=== PATIENT | female | born 1990 | race Caucasian/White ===

== ENCOUNTER → 2017-01-30 | Outpatient (CLI) | payer BC ==
[~2017-01-30] MED LIST: CATHETER FLUSH 10 ML SYR IV PRN; IOHEXOL 350 MG/ML 100 ML (OMNIPAQUE 350) VIAL IV ONE; NS 100 ML (IVPB) BAG IV ONE; PREN1TAB39
--- NOTE | 2017-01-30 14:19 | Diagnostic Imaging Report ---
OB ultrasound. INDICATION: survey. There are no prior studies available for comparison. There is a single live fetus in cephalic presentation. heart motion was noted and a rate of 174 bpm was recorded. There were no abnormalities identified. The growth parameters are fairly uniform. The growth parameters are as follows: BPD: 4.3 20 weeks 5 days Head circumference: 17.43 20 weeks 0 days Abdominal circumference: 14.97 20 weeks 2 days Femur length: 3.20 20 weeks 0 days The estimated weight is 333 g plus or -49 g. LMP percentile is 43%. The placenta is posterior and there is no previa. The amniotic fluid volume is within normal limits. The cervix was measured and is estimated to be 3.41 cm in length (normal 3 cm or greater). IMPRESSION: 1. There is a single live fetus approximately 20 weeks 2 days gestation + or -2 weeks. The EDC is 06/17/2017. 2. There are no abnormalities identified. 3. The growth parameters are fairly uniform. Dictated by: Dictated on workstation # [id number]
== END ==
LOC: RAD 10:12
PROVIDERS: ATTEND Obstetrics & Gynecology
DX: Z34.82 Encounter for supervision of other normal pregnancy, second trimester (principal); Z36 Encounter for antenatal screening of mother
CPT/HCPCS: 76805; 76817

== ENCOUNTER 2017-05-25 20:48 | Outpatient (CLI) | payer BC ==
[~2017-05-25] VITALS: Ht 160 cm; Wt 81.2 kg
[~2017-05-25 20:48] MED LIST changes: -CATHETER FLUSH 10 ML SYR IV PRN; -IOHEXOL 350 MG/ML 100 ML (OMNIPAQUE 350) VIAL IV ONE; -NS 100 ML (IVPB) BAG IV ONE
[2017-05-25] MEDS ORDERED: ASPI-999 PO (21:01)
[2017-05-25 21:09] VITALS: BP 128/79
[2017-05-25 21:17] LABS: BILIRUBIN,URINE NEGATIVE (NEGATIVE); KETONES,URINE 2+ (NEGATIVE); LEUKOCYTE ESTERASE ,URINE 1+ (NEGATIVE); NITRITE,URINE NEGATIVE (NEGATIVE); PH,URINE 6 (5-9); PROTEIN,URINE 1+ (NEGATIVE); UROBILINOGEN,URINE 1 MG/DL (NORMAL)
[2017-05-25 21:33] VITALS: BP 123/71
[2017-05-25 21:41] LABS: SQUAMOUS EPITHELIAL CELL,UR 25-50 /HPF
[2017-05-25 21:45] VITALS: BP 126/67
--- NOTE | 2017-05-27 11:51 | Physician Query-Final Dx ---
ARLETH CULLEN 05/27/17 1151: Clinic Account Progress/Dx Physician Query: Please give diagnosis Date of Service May 25, 2017 at 20:48 GENNARO PALENCIA DO 05/28/17 0836: Clinic Account Progress/Dx DIAGNOSIS: Diagnosis 36 week IUP Previous Intermittent cramping History of PreE in previous ARLETH CULLEN May 27, 2017 11:51 GENNARO PALENCIA DO May 28, 2017 08:36
== END 2017-05-25 22:03 | disposition home or self-care (01) ==
LOC: LDRP 20:48 → WSo 20:48
PROVIDERS: ATTEND Obstetrics & Gynecology
DX: O99.89 Other specified diseases and conditions complicating pregnancy, childbirth and the puerperium (principal); N94.89 Other specified conditions associated with female genital organs and menstrual cycle; O34.211 Maternal care for low transverse scar from previous cesarean delivery; O09.893 Supervision of other high risk pregnancies, third trimester; Z3A.36 36 weeks gestation of pregnancy
CPT/HCPCS: 81000; 99213

== ENCOUNTER 2017-05-31 18:14 | Inpatient (IN) | payer BC ==
[~2017-05-31] VITALS: Ht 160 cm; Wt 83.5 kg
[2017-05-31] VITALS (7 sets, daily range): BP systolic 108–135; BP diastolic 65–81
[~2017-05-31 18:14] MED LIST changes: +ASPI-999 PO
[2017-05-31] MEDS ORDERED: D5 LR IV SOLUTION 1,000 ML IV ONE (18:55)
[2017-05-31] MEDS ORDERED: D5 LR IV SOLUTION 1,000 ML IV SCH ×2 (19:00→21:30)
[2017-05-31 19:27] LABS: BASOPHILS % (AUTO) 0 % (0-10); EOSINOPHILS # (AUTO) 0.1 10^3/uL (0.0-0.3); EOSINOPHILS % (AUTO) 1 % (0-10); LYMPHOCYTES # (AUTO) 1.5 X 10^3 (1.0-4.0); LYMPHOCYTES % (AUTO) 18 % (12-44); MEAN CORPUSCULAR HEMOGLOBIN 27 PG (25-34); MEAN CORPUSCULAR HGB CONC 32 G/DL (32-36); MEAN CORPUSCULAR VOLUME 85 FL (80-99); MEAN PLATELET VOLUME 10.8 FL (7.4-10.4); MONOCYTES # (AUTO) 0.6 X 10^3 (0.0-1.0); MONOCYTES % (AUTO) 7 % (0-12); NEUTROPHILS # (AUTO) 6.4 X 10^3 (1.8-7.8); NEUTROPHILS % (AUTO) 74 % (42-75); PLATELET COUNT 231 10^3/uL (130-400); RED CELL DISTRIBUTION WIDTH 13.5 % (10.0-14.5); WHITE BLOOD COUNT 8.6 10^3/uL (4.3-11.0)
[2017-05-31 19:39] LABS: PROTEIN/CREATININE RATIO 0.15
[2017-05-31 19:44] LABS: ALANINE AMINOTRANSFERASE 11 U/L (0-55); ALBUMIN 3.2 GM/DL (3.2-4.5); ANION GAP 14 MMOL/L (5-14); ASPARTATE AMINO TRANSFERASE 17 U/L (5-34); BILIRUBIN,TOTAL 0.4 MG/DL (0.1-1.0); BLOOD UREA NITROGEN 8 MG/DL (7-18); BUN/CREATININE RATIO 14; CARBON DIOXIDE 15 MMOL/L (21-32); CHLORIDE 108 MMOL/L (98-107); CREATININE SERUM 0.57 MG/DL (0.60-1.30); GFR ESTIMATED > 60; GLUCOSE 62 MG/DL (70-105); LACTATE DEHYDROGENASE 236 U/L (125-220); POTASSIUM 3.9 MMOL/L (3.6-5.0); SODIUM 137 MMOL/L (135-145); URIC ACID 4.3 MG/DL (2.6-7.2)
[2017-05-31] MEDS ORDERED: ACET325T38 PO (20:20)
[2017-05-31] MEDS ORDERED: BUTORPHANOL INJ 2 MG/ML (STADOL) VIAL ONE (20:21)
[2017-05-31] MEDS ORDERED: BUTORPHANOL INJ 2 MG/ML (STADOL) VIAL IV ONE (20:30)
--- NOTE | 2017-05-31 21:30 | History & Physical ---
History and Physical Date Seen by Provider: May 31, 2017 Time Seen by Provider: 21:24 this patient is a 26-year-old white female.she presents with complaint of headache, and increasing edema, and the feeling of impending doom. her first was complicated by severe preeclampsia requiring emergent delivery.. she indicates that the way she feels now is the way she felt at the time of her delivery with her previous . She denies rupture membranes or bleeding. Does complain of contractions. Her has been uncomplicated but she has had progressively increasing edema over the last couple of weeks. Allergies are none Indications are vitamins Medical history, surgical history, obstetric history, family history, and social histories are per the antepartum record HEENT exam is normal. The patient does look fatigued and worried. He appears to be in mild distress Neck is supple. The abdomen is gravid and nontender Streaming show no clubbing or cyanosis. There is no Homans sign. There is markedly pretibial pitting edema Pelvic exam per the nurse shows a cervix closed and thick The monitor shows contractions every 6 minutes with normal heart rate pattern did show one variable deceleration there are accelerations and variability is normal average Laboratory Tests Test 05/31/17 18:30 05/31/17 19:10 Range/Units Urine Protein 21 H 6-12 MG/DL Urine Creatinine 142 H 30-125 MG/DL Urine Protein/Creatinine Ratio 0.15 White Blood Count 8.6 4.3-11.0 10^3/uL Red Blood Count 4.10 L 4.35-5.85 10^6/uL Hemoglobin 11.2 L 11.5-16.0 G/DL Hematocrit 35 35-52 % Mean Corpuscular Volume 85 80-99 FL Mean Corpuscular Hemoglobin 27 25-34 PG Mean Corpuscular Hemoglobin Concent 32 32-36 G/DL Red Cell Distribution Width 13.5 10.0-14.5 % Platelet Count 231 130-400 10^3/uL Mean Platelet Volume 10.8 H 7.4-10.4 FL Neutrophils (%) (Auto) 74 42-75 % Lymphocytes (%) (Auto) 18 12-44 % Monocytes (%) (Auto) 7 0-12 % Eosinophils (%) (Auto) 1 0-10 % Basophils (%) (Auto) 0 0-10 % Neutrophils # (Auto) 6.4 1.8-7.8 X 10^3 Lymphocytes # (Auto) 1.5 1.0-4.0 X 10^3 Monocytes # (Auto) 0.6 0.0-1.0 X 10^3 Eosinophils # (Auto) 0.1 0.0-0.3 10^3/uL Basophils # (Auto) 0.0 0.0-0.1 10^3/uL Sodium Level 137 135-145 MMOL/L Potassium Level 3.9 3.6-5.0 MMOL/L Chloride Level 108 H 98-107 MMOL/L Carbon Dioxide Level 15 L 21-32 MMOL/L Anion Gap 14 5-14 MMOL/L Blood Urea Nitrogen 8 7-18 MG/DL Creatinine 0.57 L 0.60-1.30 MG/DL Estimat Glomerular Filtration Rate > 60 BUN/Creatinine Ratio 14 Glucose Level 62 L 70-105 MG/DL Uric Acid 4.3 2.6-7.2 MG/DL Calcium Level 9.0 8.5-10.1 MG/DL Total Bilirubin 0.4 0.1-1.0 MG/DL Aspartate Amino Transf (AST/SGOT) 17 5-34 U/L Alanine Aminotransferase (ALT/SGPT) 11 0-55 U/L Alkaline Phosphatase 159 H 40-136 U/L Lactate Dehydrogenase 236 H 125-220 U/L Total Protein 6.0 L 6.4-8.2 GM/DL Albumin 3.2 3.2-4.5 GM/DL Patient's lab work is essentially normal except for the LDH which is elevated. Patient appears to be somewhat dehydrated. assessment and plan 37-3/7 weeks' gestation in a patient who may very well be in early labor. she also very well may be developing preeclampsia. The elevated LDH she could as well be developing help syndrome. We will continue hydration through the evening. We have given her pain medication for headache. Lab work is as noted above we will repeat that in the morning. Her prior physician was Dr. Neal and she is transferring her care currently to Dr. Navarrete. She has had a previous and plan would be for delivery by as well. Patient understands that if she does demonstrate ethnic preeclampsia then we will deliver her. If she progresses in labor we will deliver her. Any signs of compromise we would deliver her. premature labor / marked edema Allergies and Home Medications Allergies Coded Allergies: No Known Drug Allergies (Unverified , 05/25/17) Home Medications Acetaminophen 325 Mg Tablet, 325 MG PO PRN, (Reported) Aspirin 81 Mg Tab.chew, 81 MG PO DAILY, (Reported) Vits W-Ca,Fe,Fa(<1MG) 1 Each Tablet, (Reported) JOJO YANES MD May 31, 2017 9:30 pm
[2017-05-31] MEDS ORDERED: oxyCODONE/APAP 10/325MG (PERCOCET 10) TABLET PO ONE (21:45)
[2017-06-01] VITALS (13 sets, daily range): BP systolic 108–146; BP diastolic 56–91
[2017-06-01 06:40] LABS: BASOPHILS % (AUTO) 0 % (0-10); EOSINOPHILS # (AUTO) 0.1 10^3/uL (0.0-0.3); EOSINOPHILS % (AUTO) 1 % (0-10); LYMPHOCYTES # (AUTO) 1.7 X 10^3 (1.0-4.0); LYMPHOCYTES % (AUTO) 22 % (12-44); MEAN CORPUSCULAR HEMOGLOBIN 28 PG (25-34); MEAN CORPUSCULAR HGB CONC 32 G/DL (32-36); MEAN CORPUSCULAR VOLUME 86 FL (80-99); MEAN PLATELET VOLUME 10.6 FL (7.4-10.4); MONOCYTES # (AUTO) 0.6 X 10^3 (0.0-1.0); MONOCYTES % (AUTO) 7 % (0-12); NEUTROPHILS # (AUTO) 5.6 X 10^3 (1.8-7.8); NEUTROPHILS % (AUTO) 70 % (42-75); PLATELET COUNT 225 10^3/uL (130-400); RED BLOOD COUNT 3.89 10^6/uL (4.35-5.85); RED CELL DISTRIBUTION WIDTH 13.5 % (10.0-14.5)
[2017-06-01 06:57] LABS: ALANINE AMINOTRANSFERASE 12 U/L (0-55); ALBUMIN 3.1 GM/DL (3.2-4.5); ANION GAP 9 MMOL/L (5-14); ASPARTATE AMINO TRANSFERASE 13 U/L (5-34); BILIRUBIN,TOTAL 0.4 MG/DL (0.1-1.0); BLOOD UREA NITROGEN 8 MG/DL (7-18); BUN/CREATININE RATIO 14; CALCIUM 8.9 MG/DL (8.5-10.1); CARBON DIOXIDE 21 MMOL/L (21-32); CHLORIDE 107 MMOL/L (98-107); CREATININE SERUM 0.59 MG/DL (0.60-1.30); GFR ESTIMATED > 60; GLUCOSE 76 MG/DL (70-105); LACTATE DEHYDROGENASE 172 U/L (125-220); SODIUM 137 MMOL/L (135-145); TOTAL PROTEIN 5.9 GM/DL (6.4-8.2)
--- NOTE | 2017-06-01 08:32 | Progress Note-Standard ---
Standard Progress Note Progress Notes/Assess & Plan Date Seen by Provider: Jun 01, 2017 Time Seen by Provider: 08:28 Progress/Assessment & Plan patient continues to feel unwell. She reports she feels as she did when she had severe preeclampsia with her previous . As persistent headache. Her legs ache. She has occasional contraction but denies rupture membranes or bleeding. She does feel baby moving. Vital Signs Date Time Temp Pulse Resp B/P (MAP) Pulse Ox O2 Delivery O2 Flow Rate FiO2 06/01/17 06:45 97.1 105 18 126/75 Room Air 06/01/17 05:29 102 18 114/67 Room Air 06/01/17 02:24 86 18 108/57 Room Air 06/01/17 01:21 106 18 146/91 Room Air 06/01/17 01:03 99 18 127/73 Room Air 06/01/17 00:03 98 18 114/56 Room Air 05/31/17 23:03 98 18 120/65 Room Air 05/31/17 22:03 98.3 96 18 129/81 Room Air 05/31/17 21:20 99 18 133/77 Room Air 05/31/17 20:20 109 18 122/80 Room Air 05/31/17 20:02 98.8 121 18 108/71 Room Air 05/31/17 18:50 117 18 124/77 05/31/17 18:38 99.5 101 18 135/79 Blood pressures vacillated bit but are essentially normal, she is afebrile Laboratory Tests Test 05/31/17 18:30 05/31/17 19:10 06/01/17 06:30 06/01/17 07:30 Range/Units Urine Protein 21 H < 6 L 6-12 MG/DL Urine Creatinine 142 H 18 L 30-125 MG/DL Urine Protein/Creatinine Ratio 0.15 White Blood Count 8.6 8.0 4.3-11.0 10^3/uL Red Blood Count 4.10 L 3.89 L 4.35-5.85 10^6/uL Hemoglobin 11.2 L 10.7 L 11.5-16.0 G/DL Hematocrit 35 34 L 35-52 % Mean Corpuscular Volume 85 86 80-99 FL Mean Corpuscular Hemoglobin 27 28 25-34 PG Mean Corpuscular Hemoglobin Concent 32 32 32-36 G/DL Red Cell Distribution Width 13.5 13.5 10.0-14.5 % Platelet Count 231 225 130-400 10^3/uL Mean Platelet Volume 10.8 H 10.6 H 7.4-10.4 FL Neutrophils (%) (Auto) 74 70 42-75 % Lymphocytes (%) (Auto) 18 22 12-44 % Monocytes (%) (Auto) 7 7 0-12 % Eosinophils (%) (Auto) 1 1 0-10 % Basophils (%) (Auto) 0 0 0-10 % Neutrophils # (Auto) 6.4 5.6 1.8-7.8 X 10^3 Lymphocytes # (Auto) 1.5 1.7 1.0-4.0 X 10^3 Monocytes # (Auto) 0.6 0.6 0.0-1.0 X 10^3 Eosinophils # (Auto) 0.1 0.1 0.0-0.3 10^3/uL Basophils # (Auto) 0.0 0.0 0.0-0.1 10^3/uL Sodium Level 137 137 135-145 MMOL/L Potassium Level 3.9 4.0 3.6-5.0 MMOL/L Chloride Level 108 H 107 98-107 MMOL/L Carbon Dioxide Level 15 L 21 21-32 MMOL/L Anion Gap 14 9 5-14 MMOL/L Blood Urea Nitrogen 8 8 7-18 MG/DL Creatinine 0.57 L 0.59 L 0.60-1.30 MG/DL Estimat Glomerular Filtration Rate > 60 > 60 BUN/Creatinine Ratio 14 14 Glucose Level 62 L 76 70-105 MG/DL Uric Acid 4.3 2.6-7.2 MG/DL Calcium Level 9.0 8.9 8.5-10.1 MG/DL Total Bilirubin 0.4 0.4 0.1-1.0 MG/DL Aspartate Amino Transf (AST/SGOT) 17 13 5-34 U/L Alanine Aminotransferase (ALT/SGPT) 11 12 0-55 U/L Alkaline Phosphatase 159 H 158 H 40-136 U/L Lactate Dehydrogenase 236 H 172 125-220 U/L Total Protein 6.0 L 5.9 L 6.4-8.2 GM/DL Albumin 3.2 3.1 L 3.2-4.5 GM/DL Lab work is normal. Abdomen is gravid soft nontender nondistended. Extremities show no clubbing or cyanosis. There is markedly edema in the lower extremities. Pelvic exam per the labor and delivery nurse shows no pipe changer the night with her occasional contractions monitor shows contractions spaced out now to a somewhat irregular. heart rate pattern is reassuring. Assessment and plan 37 week patient with a history of severe preeclampsia. Presents with the appearance of being unwell and with contractions that have resolved somewhat hydration. We will continue observation at this point. JOJO YANES MD Jun 01, 2017 8:32 am
[2017-06-01] MEDS ORDERED: PROMETHAZINE INJ 25 MG/ML (PHENERGAN) AMP IM PRN (09:00)
[2017-06-01] MEDS ORDERED: ceFAZolin INJECTION 2,000 MG in NS (IVPB) 50 ML IV ONE (09:00)
[2017-06-01] MEDS ORDERED: metroNIDAZOLE 500MG/100ML IVPB 100 ML IV ONE (09:00)
[2017-06-01] MEDS ORDERED: MEPERIDINE (DEMEROL) INJ 100 MG/ML IM PRN (09:00)
[2017-06-01] MEDS ORDERED: OXYTOCIN/NORMAL SALINE 500 ML IV SCH (09:00)
[2017-06-01] MEDS ORDERED: TETANUS,DIPTH,PERTUSS P/F (BOOSTRIX) 0.5 ML VIAL IM ONE (09:00)
[2017-06-01] MEDS ORDERED: KETOROLAC 30 MG/ML VIAL IVP SCH ×2 (09:00→11:00)
[2017-06-01] MEDS ORDERED: MEASLES,MUMPS,RUBELLA 1 EA INJ SC ONE (09:00)
[2017-06-01] MEDS ORDERED: ceFAZolin 2 GM/50 ML NS 50 ML ONE (09:01)
[2017-06-01] MEDS ORDERED: LACTATED RINGERS 1,000 ML IV PRN (09:01)
[2017-06-01] MEDS ORDERED: D5 LR IV SOLUTION 1,000 ML IV ONE ×2 (09:08→19:14)
--- NOTE | 2017-06-01 09:10 | Progress Note-Standard ---
Standard Progress Note Progress Notes/Assess & Plan Date Seen by Provider: Jun 01, 2017 Time Seen by Provider: 09:03 Progress/Assessment & Plan patient continues to feel unwell. She reports she feels as she did when she had severe preeclampsia with her previous . As persistent headache. Her legs ache. She has occasional contraction but denies rupture membranes or bleeding. She does feel baby moving. Vital Signs Date Time Temp Pulse Resp B/P (MAP) Pulse Ox O2 Delivery O2 Flow Rate FiO2 06/01/17 06:45 97.1 105 18 126/75 Room Air 06/01/17 05:29 102 18 114/67 Room Air 06/01/17 02:24 86 18 108/57 Room Air 06/01/17 01:21 106 18 146/91 Room Air 06/01/17 01:03 99 18 127/73 Room Air 06/01/17 00:03 98 18 114/56 Room Air 05/31/17 23:03 98 18 120/65 Room Air 05/31/17 22:03 98.3 96 18 129/81 Room Air 05/31/17 21:20 99 18 133/77 Room Air 05/31/17 20:20 109 18 122/80 Room Air 05/31/17 20:02 98.8 121 18 108/71 Room Air 05/31/17 18:50 117 18 124/77 05/31/17 18:38 99.5 101 18 135/79 Blood pressures vacillated bit but are essentially normal, she is afebrile Laboratory Tests Test 05/31/17 18:30 05/31/17 19:10 06/01/17 06:30 06/01/17 07:30 Range/Units Urine Protein 21 H < 6 L 6-12 MG/DL Urine Creatinine 142 H 18 L 30-125 MG/DL Urine Protein/Creatinine Ratio 0.15 White Blood Count 8.6 8.0 4.3-11.0 10^3/uL Red Blood Count 4.10 L 3.89 L 4.35-5.85 10^6/uL Hemoglobin 11.2 L 10.7 L 11.5-16.0 G/DL Hematocrit 35 34 L 35-52 % Mean Corpuscular Volume 85 86 80-99 FL Mean Corpuscular Hemoglobin 27 28 25-34 PG Mean Corpuscular Hemoglobin Concent 32 32 32-36 G/DL Red Cell Distribution Width 13.5 13.5 10.0-14.5 % Platelet Count 231 225 130-400 10^3/uL Mean Platelet Volume 10.8 H 10.6 H 7.4-10.4 FL Neutrophils (%) (Auto) 74 70 42-75 % Lymphocytes (%) (Auto) 18 22 12-44 % Monocytes (%) (Auto) 7 7 0-12 % Eosinophils (%) (Auto) 1 1 0-10 % Basophils (%) (Auto) 0 0 0-10 % Neutrophils # (Auto) 6.4 5.6 1.8-7.8 X 10^3 Lymphocytes # (Auto) 1.5 1.7 1.0-4.0 X 10^3 Monocytes # (Auto) 0.6 0.6 0.0-1.0 X 10^3 Eosinophils # (Auto) 0.1 0.1 0.0-0.3 10^3/uL Basophils # (Auto) 0.0 0.0 0.0-0.1 10^3/uL Sodium Level 137 137 135-145 MMOL/L Potassium Level 3.9 4.0 3.6-5.0 MMOL/L Chloride Level 108 H 107 98-107 MMOL/L Carbon Dioxide Level 15 L 21 21-32 MMOL/L Anion Gap 14 9 5-14 MMOL/L Blood Urea Nitrogen 8 8 7-18 MG/DL Creatinine 0.57 L 0.59 L 0.60-1.30 MG/DL Estimat Glomerular Filtration Rate > 60 > 60 BUN/Creatinine Ratio 14 14 Glucose Level 62 L 76 70-105 MG/DL Uric Acid 4.3 2.6-7.2 MG/DL Calcium Level 9.0 8.9 8.5-10.1 MG/DL Total Bilirubin 0.4 0.4 0.1-1.0 MG/DL Aspartate Amino Transf (AST/SGOT) 17 13 5-34 U/L Alanine Aminotransferase (ALT/SGPT) 11 12 0-55 U/L Alkaline Phosphatase 159 H 158 H 40-136 U/L Lactate Dehydrogenase 236 H 172 125-220 U/L Total Protein 6.0 L 5.9 L 6.4-8.2 GM/DL Albumin 3.2 3.1 L 3.2-4.5 GM/DL Lab work is normal. Abdomen is gravid soft nontender nondistended. Extremities show no clubbing or cyanosis. There is markedly edema in the lower extremities. Pelvic exam per the labor and delivery nurse shows no shredding machine knife changer the night with her occasional contractions monitor shows contractions spaced out now to a somewhat irregular. heart rate pattern is reassuring. Assessment and plan 37 week patient with a history of severe preeclampsia. Presents with the appearance of being unwell and with contractions that have resolved somewhat hydration. We will continue observation at this point. June 01, 2017 at 903 a.m. Patient now complains of increasing head pain and pressure and headache, she feels like her head is swelling. She complains that her vision has become blurry and that she is beginning to have pain particularly in her upper abdomen. she now complains of increasing pressure in the pelvis and of the sensation of a tearing or ripping at her pubic bone. appears anxious and indicates that she feels like she did with her previous that time of her delivery. she complains of the swelling is getting worse at her legs and arms and hands feel like they are splitting from the edema. HEENT exam. Patient's face is sandoval. Eye exam shows no specific papilledema, however that does appear to be AV nicking. The abdomen is gravid. There is fairly significant tenderness across the pubic bone on palpation. Monitor shows an increase in number and frequency of her contractions extremities show fairly marked anasarca globally. DTRs are 3+ to 4 patellar and biceps tendons. There is 2 beats of clonus. Vital Signs 06/01/17 06:45 Temp 97.1 Pulse 105 Resp 18 B/P (MAP) 126/75 O2 Delivery Room Air most recent vital signs remained stable The monitor shows crease frequency and contractions. Occasional variable D cell. Assessment and plan 37-4/7 weeks' gestation in patient with previous C- section due to severe preeclampsia.. Patient continues to appear unwell appears to be deteriorating. With her constellation of signs and symptoms including anasarca, headache, or abdominal and lower abdominal pain, previous delivery, persistent contractions, and progressive complaints we will proceed now to repeat . patient agrees and expresses relief as does her partner the plan for delivery. She does understand and accept the increased risk for a compromised 37-4/7 weeks gestation. she is ready to proceed. Surgical crews and anesthesia have been called and nursery is aware FARZANA,JOJO G MD Jun 01, 2017 9:10 am
[2017-06-01] MEDS ORDERED: METOCLOPRAMIDE INJ 10 MG/2 ML (REGLAN) IV ONE (09:15)
[2017-06-01] MEDS ORDERED: CITRIC ACID/SOB CIT (BICITRA) 30 ML UDC PO ONE (09:15)
[2017-06-01] MEDS ORDERED: FAMOTIDINE 20MG/2ML IV (PEPCID) IV ONE (09:15)
--- NOTE | 2017-06-01 09:16 | Progress Note-Pre Operative ---
Pre-Operative Progress Note H&P Reviewed The H&P was reviewed, patient examined and no changes noted. Date Seen by Provider: Jun 01, 2017 Time Seen by Provider: 09:15 Date H&P Reviewed: Jun 01, 2017 Time H&P Reviewed: 09:15 Pre-Operative Diagnosis: 37-3/7 weeks' gestation with anasarca, neurologic symptoms of preeclampsia JOJO YANES MD Jun 01, 2017 9:16 am
--- NOTE | 2017-06-01 09:17 | Progress Note-Post Operative ---
Post-Operative Progess Note Surgeon (s)/Promotions Manager (s) Surgeon JOJO YANES MD Promotions Manager: Concepcion Garcia RN Pre-Operative Diagnosis 37-3/7 weeks' gestation with anasarca, neurologic symptoms of preeclampsia Post-Operative Diagnosis same as preop Procedure & Operative Findings Date of Procedure 06/01/17 Procedure Performed/Findings repeat low transverse delivery Anesthesia Type spinal Estimated Blood Loss Estimated blood loss (mL): 200 cc Specimens/Packing Specimens Removed placenta and umbilical cord Packing: none JOJO YANES MD Jun 01, 2017 09:17
[2017-06-01] MEDS ORDERED: ONDANSETRON 4 MG/2 ML (SDV) Z0FRAN ONE ×2 (09:25→09:53)
[2017-06-01] MEDS ORDERED: OXYTOCIN/NORMAL SALINE 500 ML IV ONE (09:25)
[2017-06-01] MEDS ORDERED: fentaNYL INJECTION 100 MCG/2 ML AMP ONE (09:25)
[2017-06-01] MEDS ORDERED: FUROSEMIDE 40 MG/4 ML INJ (LASIX) ONE (10:20)
[2017-06-01] MEDS ORDERED: KETOROLAC 30 MG/ML VIAL IVP ONE (10:25)
[2017-06-01] MEDS ORDERED: ONDANSETRON 4 MG/2 ML (SDV) Z0FRAN IV PRN (10:45)
[2017-06-01] MEDS ORDERED: NALOXONE 0.4 MG/ML 1 ML (NARCAN) VIAL IV PRN ×2 (10:45)
[2017-06-01] MEDS ORDERED: diphenhydrAMINE 50 MG/ML INJ (BENADRYL) IV PRN (10:45)
[2017-06-01] MEDS ORDERED: METOCLOPRAMIDE INJ 10 MG/2 ML (REGLAN) IV PRN (10:45)
[2017-06-01] MEDS ORDERED: morphine INJ 10 MG/ML 1ML (SYR OR VIAL) IVP PRN (10:45)
[2017-06-01] MEDS ORDERED: MEPERIDINE (DEMEROL) INJ 50 MG/ML IVP PRN (10:45)
[2017-06-01] MEDS: OXYTOCIN/NORMAL SALINE 500 ML IV SCH ×2 (11:08→15:11)
[2017-06-01] MEDS: DOCUSATE SODIUM 100 MG (COLACE) CAP PO SCH ×2 (11:10→19:22)
--- NOTE | 2017-06-01 13:49 | OPERATIVE REPORT ---
DATE OF SERVICE: 06/01/2017 PREOPERATIVE DIAGNOSIS: 37 and 4/7 weeks gestation with history of preeclampsia with anasarca with neurologic symptoms of preeclampsia and with labor with previous section. OPERATIVE PROCEDURE: Repeat low transverse delivery of a viable female with Apgars of 9 and 9 at 1 and 5 minutes respectively, weight of 7 pounds, cord blood pH of 7.31 from an umbilical artery and time of 1003. OPERATIVE DESCRIPTION: With the patient in the supine position under satisfactory spinal anesthesia, she was prepped and draped in the usual fashion for abdominal surgery. Trammell catheter was placed in the urinary bladder. A Pfannenstiel incision was made through the skin with the scalpel at the site of the patient's previous Pfannenstiel incision by removing the previous Pfannenstiel incisional scar. The lower abdominal wall was quite edematous and fluid seeped from the tissue on incision. The abdomen was entered in the usual manner. Bladder retractor placed into position and a clean scalpel used to make a 4 cm hysterotomy incision transversely across the lower uterine segment which was essentially comprised of membranes and peritoneum, as there was a window extending completely across the lower uterine segment transversely and caudad cephalad it was approximately 4 cm in width. That incision was extended very easily bluntly. The clear fluid was released on amniotomy. A vigorous viable female infant was delivered via the uterine incision. had Apgars of 9 and 9 at 1 and 5 minutes respectively, weight 7 pounds, time of 1003 and an arterial cord blood pH of 7.31. The was bulb suctioned on delivery of the head, a nuchal cord was easily released, the delivery completed, the bulb suctioned as the cord was doubly clamped and cut and the infant passed to Vianney Inman, a pediatric nurse in attendance for delivery. Cord bloods were obtained. The placenta delivered spontaneously [place]. It was normal with a 3-vessel cord. The uterus was exteriorized and interior wiped clean with a wet laparotomy sponge. Uterine incision was then closed with a running locked suture of 2-0 Vicryl, taking care to obliterate the window. The closure was completely hemostatic. The uterus was returned to the abdominal cavity. All blood, clot and debris removed from the abdominal cavity. With sponge and needle counts correct and hemostasis assured, the anterior parietal peritoneum was closed with a running suture of 2-0 Vicryl, the rectus muscles were closed with that suture as well. Rectus fascia was closed with 2-0 Vicryl, subcutaneous tissue was closed with 2-0 Vicryl and the skin was stapled. Sponge and needle counts were correct on completion of the delivery. The patient tolerated the delivery well and reported feeling markedly improved, even as we were finishing her surgery. I suspect this may be related more to the spinal than to relieving the abdomen of the . Estimated blood loss was around 200 mL. The patient tolerated the procedure very well and was transferred to the recovery room in stable condition and the infant had been taken stable to the full-term nursery under the care of Vianney Inman. Job ID: [id number] DocumentID: [id number] Dictated Date: 06/01/2017 10:31:36 Wheel Inspector Date: 06/01/2017 13:49:15 Dictated By: JOJO YANES MD
[2017-06-01] MEDS: oxyCODONE/APAP 10/325MG (PERCOCET 10) TABLET PO PRN ×2 (14:00→19:28)
[2017-06-01] MEDS: KETOROLAC 30 MG/ML VIAL IVP SCH ×2 (15:57→22:04)
[2017-06-02] MEDS: KETOROLAC 30 MG/ML VIAL IVP SCH (03:59)
[2017-06-02 04:05] VITALS: BP 122/83
--- NOTE | 2017-06-02 07:42 | Anesthesia-Regional Post-Op ---
Regional Patient Condition Mental Status: Alert, Oriented x3 Circulation: Same as Pre-Op Headache: Absent Sensation: Full Recovery Motor Block: Absent Post Op Complications Complications None Follow Up Care/Instructions Patient Instructions None needed. Anesthesia/Patient Condition Patient is doing well, no complaints, stable vital signs, no apparent adverse anesthesia problems. No complications reported per nursing. TETO CUMMINGS CRNA Jun 02, 2017 07:42
--- NOTE | 2017-06-02 08:17 | Progress Note-Standard ---
Standard Progress Note Progress Notes/Assess & Plan Date Seen by Provider: Jun 02, 2017 Time Seen by Provider: 08:16 Progress/Assessment & Plan patient continues to feel unwell. She reports she feels as she did when she had severe preeclampsia with her previous . As persistent headache. Her legs ache. She has occasional contraction but denies rupture membranes or bleeding. She does feel baby moving. Vital Signs Date Time Temp Pulse Resp B/P (MAP) Pulse Ox O2 Delivery O2 Flow Rate FiO2 06/01/17 06:45 97.1 105 18 126/75 Room Air 06/01/17 05:29 102 18 114/67 Room Air 06/01/17 02:24 86 18 108/57 Room Air 06/01/17 01:21 106 18 146/91 Room Air 06/01/17 01:03 99 18 127/73 Room Air 06/01/17 00:03 98 18 114/56 Room Air 05/31/17 23:03 98 18 120/65 Room Air 05/31/17 22:03 98.3 96 18 129/81 Room Air 05/31/17 21:20 99 18 133/77 Room Air 05/31/17 20:20 109 18 122/80 Room Air 05/31/17 20:02 98.8 121 18 108/71 Room Air 05/31/17 18:50 117 18 124/77 05/31/17 18:38 99.5 101 18 135/79 Blood pressures vacillated bit but are essentially normal, she is afebrile Laboratory Tests Test 05/31/17 18:30 05/31/17 19:10 06/01/17 06:30 06/01/17 07:30 Range/Units Urine Protein 21 H < 6 L 6-12 MG/DL Urine Creatinine 142 H 18 L 30-125 MG/DL Urine Protein/Creatinine Ratio 0.15 White Blood Count 8.6 8.0 4.3-11.0 10^3/uL Red Blood Count 4.10 L 3.89 L 4.35-5.85 10^6/uL Hemoglobin 11.2 L 10.7 L 11.5-16.0 G/DL Hematocrit 35 34 L 35-52 % Mean Corpuscular Volume 85 86 80-99 FL Mean Corpuscular Hemoglobin 27 28 25-34 PG Mean Corpuscular Hemoglobin Concent 32 32 32-36 G/DL Red Cell Distribution Width 13.5 13.5 10.0-14.5 % Platelet Count 231 225 130-400 10^3/uL Mean Platelet Volume 10.8 H 10.6 H 7.4-10.4 FL Neutrophils (%) (Auto) 74 70 42-75 % Lymphocytes (%) (Auto) 18 22 12-44 % Monocytes (%) (Auto) 7 7 0-12 % Eosinophils (%) (Auto) 1 1 0-10 % Basophils (%) (Auto) 0 0 0-10 % Neutrophils # (Auto) 6.4 5.6 1.8-7.8 X 10^3 Lymphocytes # (Auto) 1.5 1.7 1.0-4.0 X 10^3 Monocytes # (Auto) 0.6 0.6 0.0-1.0 X 10^3 Eosinophils # (Auto) 0.1 0.1 0.0-0.3 10^3/uL Basophils # (Auto) 0.0 0.0 0.0-0.1 10^3/uL Sodium Level 137 137 135-145 MMOL/L Potassium Level 3.9 4.0 3.6-5.0 MMOL/L Chloride Level 108 H 107 98-107 MMOL/L Carbon Dioxide Level 15 L 21 21-32 MMOL/L Anion Gap 14 9 5-14 MMOL/L Blood Urea Nitrogen 8 8 7-18 MG/DL Creatinine 0.57 L 0.59 L 0.60-1.30 MG/DL Estimat Glomerular Filtration Rate > 60 > 60 BUN/Creatinine Ratio 14 14 Glucose Level 62 L 76 70-105 MG/DL Uric Acid 4.3 2.6-7.2 MG/DL Calcium Level 9.0 8.9 8.5-10.1 MG/DL Total Bilirubin 0.4 0.4 0.1-1.0 MG/DL Aspartate Amino Transf (AST/SGOT) 17 13 5-34 U/L Alanine Aminotransferase (ALT/SGPT) 11 12 0-55 U/L Alkaline Phosphatase 159 H 158 H 40-136 U/L Lactate Dehydrogenase 236 H 172 125-220 U/L Total Protein 6.0 L 5.9 L 6.4-8.2 GM/DL Albumin 3.2 3.1 L 3.2-4.5 GM/DL Lab work is normal. Abdomen is gravid soft nontender nondistended. Extremities show no clubbing or cyanosis. There is markedly edema in the lower extremities. Pelvic exam per the labor and delivery nurse shows no blade changer the night with her occasional contractions monitor shows contractions spaced out now to a somewhat irregular. heart rate pattern is reassuring. Assessment and plan 37 week patient with a history of severe preeclampsia. Presents with the appearance of being unwell and with contractions that have resolved somewhat hydration. We will continue observation at this point. June 01, 2017 at 903 a.m. Patient now complains of increasing head pain and pressure and headache, she feels like her head is swelling. She complains that her vision has become blurry and that she is beginning to have pain particularly in her upper abdomen. she now complains of increasing pressure in the pelvis and of the sensation of a tearing or ripping at her pubic bone. appears anxious and indicates that she feels like she did with her previous that time of her delivery. she complains of the swelling is getting worse at her legs and arms and hands feel like they are splitting from the edema. HEENT exam. Patient's face is sandoval. Eye exam shows no specific papilledema, however that does appear to be AV nicking. The abdomen is gravid. There is fairly significant tenderness across the pubic bone on palpation. Monitor shows an increase in number and frequency of her contractions extremities show fairly marked anasarca globally. DTRs are 3+ to 4 patellar and biceps tendons. There is 2 beats of clonus. Vital Signs 06/01/17 06:45 Temp 97.1 Pulse 105 Resp 18 B/P (MAP) 126/75 O2 Delivery Room Air most recent vital signs remained stable The monitor shows crease frequency and contractions. Occasional variable D cell. Assessment and plan 37-4/7 weeks' gestation in patient with previous C- section due to severe preeclampsia.. Patient continues to appear unwell appears to be deteriorating. With her constellation of signs and symptoms including anasarca, headache, or abdominal and lower abdominal pain, previous delivery, persistent contractions, and progressive complaints we will proceed now to repeat . patient agrees and expresses relief as does her partner the plan for delivery. She does understand and accept the increased risk for a compromised 37-4/7 weeks gestation. she is ready to proceed. Surgical crews and anesthesia have been called and nursery is aware all the 2016 Patient is without complaint. She is ambulating, voiding, tolerating fairly well, denies headache, denies shortness of breath, denies nausea vomiting, denies chest pain. Patient has good pain control. Vital Signs Date Time Temp Pulse Resp B/P (MAP) Pulse Ox O2 Delivery O2 Flow Rate FiO2 06/02/17 04:05 98.0 112 18 122/83 98 Room Air 06/02/17 00:35 105 18 96 Room Air 06/02/17 00:12 118 18 98 Room Air 06/01/17 23:50 99.6 128 18 133/77 97 Room Air 06/01/17 19:25 99.0 116 18 130/80 97 Room Air 06/01/17 16:00 99.3 115 18 113/69 96 Room Air 06/01/17 12:53 98.5 91 18 129/80 98 Room Air 06/01/17 12:01 Room Air 06/01/17 09:30 120 18 120/85 Room Air 06/01/17 09:00 97 18 129/78 Room Air I & O 06/02/17 07:00 Intake Total 3500 ml Output Total 3975 ml Balance -475 ml Vital signs are stable. Patient is afebrile. The abdomen is benign. The surgical incision is clean dry and intact. Extremities show clubbing cyanosis. There is some notable pretibial pitting edema that is improved from yesterday. There is no Homans sign. Assessment and plan postoperative day number 1 status post repeat doing well. Patient will have routine convalescence care today and consider for discharge home tomorrow JOJO YANES MD Jun 02, 2017 8:17 am
[2017-06-02] MEDS ORDERED: OXYC-465 PO (08:19)
[2017-06-02] MEDS ORDERED: IBUP-1780 PO (08:19)
[2017-06-02] MEDS ORDERED: DOCU100C37 PO (08:19)
--- NOTE | 2017-06-02 08:21 | Discharge Instructions ---
Discharge Instructions Discharge Medications New, Converted or Re-Newed RX: RX on Chart Patient Instructions Patient Instructions: as directed Return to The Hospital For: as directed Activity & Diet Discharge Diet: No Restrictions Activity as Tolerated: No Orders-Post D/C & Referrals Follow Up Appt: RTC on Wednesday, June 07, 2017 at 930 a.m. for incision check. Call to make follow up appt. for patient in [address] Navarrete. Wound Care: Remove zahra, apply benzoin and steri strips. Activity Per routine post instructions. Diet as tolerated Patient may shower or tub bathe as desired. Continue home meds JOJO YANES MD Jun 02, 2017 8:21 am
[2017-06-02 08:50] VITALS: BP 123/84
[2017-06-02] MEDS: IBUPROFEN 800 MG (MOTRIN) TAB PO SCH ×3 (09:41→22:44)
[2017-06-02] MEDS: DOCUSATE SODIUM 100 MG (COLACE) CAP PO SCH ×2 (09:41→22:46)
[2017-06-02] MEDS: oxyCODONE/APAP 10/325MG (PERCOCET 10) TABLET PO PRN (14:46)
[2017-06-02 16:00] VITALS: BP 116/72
[2017-06-02 22:35] VITALS: BP 114/67
[2017-06-03 04:05] VITALS: BP 114/71
[2017-06-03] MEDS: IBUPROFEN 800 MG (MOTRIN) TAB PO SCH (04:05)
--- NOTE | 2017-06-03 07:08 | Progress Note-Standard ---
Standard Progress Note Progress Notes/Assess & Plan Date Seen by Provider: Jun 03, 2017 Time Seen by Provider: 07:07 Progress/Assessment & Plan patient continues to feel unwell. She reports she feels as she did when she had severe preeclampsia with her previous . As persistent headache. Her legs ache. She has occasional contraction but denies rupture membranes or bleeding. She does feel baby moving. Vital Signs Date Time Temp Pulse Resp B/P (MAP) Pulse Ox O2 Delivery O2 Flow Rate FiO2 06/01/17 06:45 97.1 105 18 126/75 Room Air 06/01/17 05:29 102 18 114/67 Room Air 06/01/17 02:24 86 18 108/57 Room Air 06/01/17 01:21 106 18 146/91 Room Air 06/01/17 01:03 99 18 127/73 Room Air 06/01/17 00:03 98 18 114/56 Room Air 05/31/17 23:03 98 18 120/65 Room Air 05/31/17 22:03 98.3 96 18 129/81 Room Air 05/31/17 21:20 99 18 133/77 Room Air 05/31/17 20:20 109 18 122/80 Room Air 05/31/17 20:02 98.8 121 18 108/71 Room Air 05/31/17 18:50 117 18 124/77 05/31/17 18:38 99.5 101 18 135/79 Blood pressures vacillated bit but are essentially normal, she is afebrile Laboratory Tests Test 05/31/17 18:30 05/31/17 19:10 06/01/17 06:30 06/01/17 07:30 Range/Units Urine Protein 21 H < 6 L 6-12 MG/DL Urine Creatinine 142 H 18 L 30-125 MG/DL Urine Protein/Creatinine Ratio 0.15 White Blood Count 8.6 8.0 4.3-11.0 10^3/uL Red Blood Count 4.10 L 3.89 L 4.35-5.85 10^6/uL Hemoglobin 11.2 L 10.7 L 11.5-16.0 G/DL Hematocrit 35 34 L 35-52 % Mean Corpuscular Volume 85 86 80-99 FL Mean Corpuscular Hemoglobin 27 28 25-34 PG Mean Corpuscular Hemoglobin Concent 32 32 32-36 G/DL Red Cell Distribution Width 13.5 13.5 10.0-14.5 % Platelet Count 231 225 130-400 10^3/uL Mean Platelet Volume 10.8 H 10.6 H 7.4-10.4 FL Neutrophils (%) (Auto) 74 70 42-75 % Lymphocytes (%) (Auto) 18 22 12-44 % Monocytes (%) (Auto) 7 7 0-12 % Eosinophils (%) (Auto) 1 1 0-10 % Basophils (%) (Auto) 0 0 0-10 % Neutrophils # (Auto) 6.4 5.6 1.8-7.8 X 10^3 Lymphocytes # (Auto) 1.5 1.7 1.0-4.0 X 10^3 Monocytes # (Auto) 0.6 0.6 0.0-1.0 X 10^3 Eosinophils # (Auto) 0.1 0.1 0.0-0.3 10^3/uL Basophils # (Auto) 0.0 0.0 0.0-0.1 10^3/uL Sodium Level 137 137 135-145 MMOL/L Potassium Level 3.9 4.0 3.6-5.0 MMOL/L Chloride Level 108 H 107 98-107 MMOL/L Carbon Dioxide Level 15 L 21 21-32 MMOL/L Anion Gap 14 9 5-14 MMOL/L Blood Urea Nitrogen 8 8 7-18 MG/DL Creatinine 0.57 L 0.59 L 0.60-1.30 MG/DL Estimat Glomerular Filtration Rate > 60 > 60 BUN/Creatinine Ratio 14 14 Glucose Level 62 L 76 70-105 MG/DL Uric Acid 4.3 2.6-7.2 MG/DL Calcium Level 9.0 8.9 8.5-10.1 MG/DL Total Bilirubin 0.4 0.4 0.1-1.0 MG/DL Aspartate Amino Transf (AST/SGOT) 17 13 5-34 U/L Alanine Aminotransferase (ALT/SGPT) 11 12 0-55 U/L Alkaline Phosphatase 159 H 158 H 40-136 U/L Lactate Dehydrogenase 236 H 172 125-220 U/L Total Protein 6.0 L 5.9 L 6.4-8.2 GM/DL Albumin 3.2 3.1 L 3.2-4.5 GM/DL Lab work is normal. Abdomen is gravid soft nontender nondistended. Extremities show no clubbing or cyanosis. There is markedly edema in the lower extremities. Pelvic exam per the labor and delivery nurse shows no pipe changer the night with her occasional contractions monitor shows contractions spaced out now to a somewhat irregular. heart rate pattern is reassuring. Assessment and plan 37 week patient with a history of severe preeclampsia. Presents with the appearance of being unwell and with contractions that have resolved somewhat hydration. We will continue observation at this point. June 01, 2017 at 903 a.m. Patient now complains of increasing head pain and pressure and headache, she feels like her head is swelling. She complains that her vision has become blurry and that she is beginning to have pain particularly in her upper abdomen. she now complains of increasing pressure in the pelvis and of the sensation of a tearing or ripping at her pubic bone. appears anxious and indicates that she feels like she did with her previous that time of her delivery. she complains of the swelling is getting worse at her legs and arms and hands feel like they are splitting from the edema. HEENT exam. Patient's face is sandoval. Eye exam shows no specific papilledema, however that does appear to be AV nicking. The abdomen is gravid. There is fairly significant tenderness across the pubic bone on palpation. Monitor shows an increase in number and frequency of her contractions extremities show fairly marked anasarca globally. DTRs are 3+ to 4 patellar and biceps tendons. There is 2 beats of clonus. Vital Signs 06/01/17 06:45 Temp 97.1 Pulse 105 Resp 18 B/P (MAP) 126/75 O2 Delivery Room Air most recent vital signs remained stable The monitor shows crease frequency and contractions. Occasional variable D cell. Assessment and plan 37-4/7 weeks' gestation in patient with previous C- section due to severe preeclampsia.. Patient continues to appear unwell appears to be deteriorating. With her constellation of signs and symptoms including anasarca, headache, or abdominal and lower abdominal pain, previous delivery, persistent contractions, and progressive complaints we will proceed now to repeat . patient agrees and expresses relief as does her partner the plan for delivery. She does understand and accept the increased risk for a compromised 37-4/7 weeks gestation. she is ready to proceed. Surgical crews and anesthesia have been called and nursery is aware all the 2016 Patient is without complaint. She is ambulating, voiding, tolerating fairly well, denies headache, denies shortness of breath, denies nausea vomiting, denies chest pain. Patient has good pain control. Vital Signs Date Time Temp Pulse Resp B/P (MAP) Pulse Ox O2 Delivery O2 Flow Rate FiO2 06/02/17 04:05 98.0 112 18 122/83 98 Room Air 06/02/17 00:35 105 18 96 Room Air 06/02/17 00:12 118 18 98 Room Air 06/01/17 23:50 99.6 128 18 133/77 97 Room Air 06/01/17 19:25 99.0 116 18 130/80 97 Room Air 06/01/17 16:00 99.3 115 18 113/69 96 Room Air 06/01/17 12:53 98.5 91 18 129/80 98 Room Air 06/01/17 12:01 Room Air 06/01/17 09:30 120 18 120/85 Room Air 06/01/17 09:00 97 18 129/78 Room Air I & O 06/02/17 07:00 Intake Total 3500 ml Output Total 3975 ml Balance -475 ml Vital signs are stable. Patient is afebrile. The abdomen is benign. The surgical incision is clean dry and intact. Extremities show clubbing cyanosis. There is some notable pretibial pitting edema that is improved from yesterday. There is no Homans sign. Assessment and plan postoperative day number 1 status post repeat doing well. Patient will have routine convalescence care today and consider for discharge home tomorrow June 03, 2017 Patient without complaint. She is ambulating, voiding, tolerating fairly well, denies chest pain, denies shortness breath, denies headache, denies nausea vomiting, is requesting discharge home. Vital Signs Date Time Temp Pulse Resp B/P (MAP) Pulse Ox O2 Delivery O2 Flow Rate FiO2 06/03/17 04:05 108 18 114/71 96 Room Air 06/02/17 22:35 98.2 112 18 114/67 97 Room Air 06/02/17 16:00 98.2 109 18 116/72 97 Room Air 06/02/17 08:50 98.2 110 18 123/84 97 Room Air I & O 06/03/17 07:00 Intake Total 550 ml Output Total 1400 ml Balance -850 ml vital signs are stable. Patient afebrile. Physical exam is unremarkable. The abdomen is benign. Extreme show clubbing cyanosis. Her edema is improving. Assessment and plan postoperative day number 2 status post repeat doing well. Plan is for discharge home with follow-up in clinic Final Diagnosis term repeat delivery JOJO YANES MD Jun 03, 2017 7:08 am
[2017-06-03 08:35] VITALS: BP 136/81
[2017-06-03] MEDS: DOCUSATE SODIUM 100 MG (COLACE) CAP PO SCH (09:07)
== END 2017-06-03 11:00 | disposition home or self-care (01) | DRG 766 ==
LOC: WSo 18:14 → LDRP 18:15 → UNDOADMOB 20:10 → LDRP 20:10 → WSo 20:10 → OBSVTOIN 06-01 08:59 → INTOOBSV 06-01 09:00 → LDRP 06-01 11:40 → UNDODISIN 06-03 11:00 → EDSTATUS 06-04 09:40
PROVIDERS: ADMIT Obstetrics & Gynecology; ATTEND Obstetrics & Gynecology
PROC: 10D00Z1 Extraction of Products of Conception, Low, Open Approach (ICD-10-PCS; principal; 2017-06-01 09:41)
DX: O26.93 Pregnancy related conditions, unspecified, third trimester (principal); R51 Headache; R60.1 Generalized edema; O34.211 Maternal care for low transverse scar from previous cesarean delivery; Z3A.37 37 weeks gestation of pregnancy; Z37.0 Single live birth
CPT/HCPCS: 36415; 80053; 82570; 83615; 84156; 84550; 85025; 86850; 86900; 86901; 94664; 99212; G0378

== ENCOUNTER 2018-11-25 18:18 | Emergency (ER) | payer OTHER, MEDICAID ==
[~2018-11-25] VITALS: Ht 160 cm; Wt 62.6 kg
[~2018-11-25 18:18] MED LIST changes: +ACET325T38 PO; +DOCU100C37 PO; +IBUP-1780 PO; +OXYC-465 PO
--- OUTSIDE RECORDS SUMMARY | 2018-11-25 18:24 | XMS REPORT ---
Author Author KIM FOSTER [facility] Address [address] [place] [address] Care Team Providers Care Nail Galvanizer Name Role Phone KIM FOSTER Unavailable PROBLEMS Type Condition ICD9-CM Code [id number] Code Onset Dates Condition Status SNOMED Code Problem Scabies 133.0 Active [id number] ALLERGIES No Known Allergies ENCOUNTERS Encounter Location Date Diagnosis [facility] [id number] [place] [phone] Dec, Acute suppurative otitis media of left ear without spontaneous rupture of tympanic membrane, recurrence not specified H66.002 [facility] [id number] [place] [phone] 14 Jan, 2015 [facility] [id number] [place] [phone] 13 Jan, 2015 [facility] [id number] [place] [phone] Dec, [facility] [id number], [place] [phone] Dec, IMMUNIZATIONS No Known Immunizations SOCIAL HISTORY Never Assessed REASON FOR VISIT Earache Pt c/o L ear pain since this morning, has had nasal congestion for a few days AMBERLY Aguilar PLAN OF CARE Activity Details Follow Up prn Reason: VITAL SIGNS Weight 154.8 lbs 2017-12-30 Temperature 97.8 degrees Fahrenheit 2017-12-30 Heart Rate 88 bpm 2017-12-30 Respiratory Rate 18 2017-12-30 Blood pressure systolic 110 mmHg 2017-12-30 Blood pressure diastolic 68 mmHg 2017-12-30 MEDICATIONS Medication Instructions Dosage Frequency Start Date End Date Duration Status Permethrin 5 % apply 1 Application (thoroughly massage into skin from head to soles of feet) by Topical route once 1 daily leave on for 8-14 hr, then remove by thorough washing repeat in 7 days if needed Dec, Not-Taking Augmentin 875-125 MG Orally every 12 hrs 1 tablet 12h Dec,Dec 10 day(s) Active RESULTS No Results PROCEDURES No Known procedures INSTRUCTIONS MEDICATIONS ADMINISTERED No Known Medications
[2018-11-25] MEDS ORDERED: ACETAMINOPHEN 500 MG TAB (TYLENOL) PO PRN (18:30)
[2018-11-25] MEDS ORDERED: ONDANSETRON 4 MG/2 ML (SDV) Z0FRAN IV PRN (18:30)
[2018-11-25] MEDS ORDERED: NS IV ONE (18:30)
[2018-11-25] MEDS ORDERED: fentaNYL INJECTION 100 MCG/2 ML AMP IVP STA (18:39)
[2018-11-25 18:41] LABS: BASOPHILS % (AUTO) 0 % (0-10); EOSINOPHILS % (AUTO) 0 % (0-10); HEMATOCRIT 40 % (35-52); HEMOGLOBIN 13.5 G/DL (11.5-16.0); LYMPHOCYTES # (AUTO) 0.5 X 10^3 (1.0-4.0); LYMPHOCYTES % (AUTO) 9 % (12-44); MEAN CORPUSCULAR HEMOGLOBIN 29 PG (25-34); MEAN CORPUSCULAR HGB CONC 34 G/DL (32-36); MEAN CORPUSCULAR VOLUME 86 FL (80-99); MEAN PLATELET VOLUME 9.9 FL (7.4-10.4); MONOCYTES # (AUTO) 0.1 X 10^3 (0.0-1.0); MONOCYTES % (AUTO) 3 % (0-12); NEUTROPHILS % (AUTO) 88 % (42-75); PLATELET COUNT 198 10^3/uL (130-400); RED CELL DISTRIBUTION WIDTH 12.6 % (10.0-14.5); WHITE BLOOD COUNT 5.7 10^3/uL (4.3-11.0)
[2018-11-25] MEDS ORDERED: NS 100 ML (IVPB) BAG IV ONE (18:45)
[2018-11-25] MEDS ORDERED: RECEIVED CONTRAST (Hold Metformin) IV SCH (18:45)
[2018-11-25] MEDS ORDERED: IOHEXOL 350 MG/ML 100 ML (OMNIPAQUE 350) VIAL IV ONE (18:45)
[2018-11-25 18:58] LABS: INR 1.2 (0.8-1.4); PROTHROMBIN TIME PATIENT 15.5 SEC (12.2-14.7)
[2018-11-25 18:59] LABS: CHLORIDE 104 MMOL/L (98-107); POTASSIUM 3.3 MMOL/L (3.6-5.0); SODIUM 135 MMOL/L (135-145)
[2018-11-25 19:00] LABS: ALANINE AMINOTRANSFERASE 15 U/L (0-55); ALBUMIN 4.4 GM/DL (3.2-4.5); ALKALINE PHOSPHATASE 78 U/L (40-136); BILIRUBIN,TOTAL 1.7 MG/DL (0.1-1.0); BUN/CREATININE RATIO 10; CARBON DIOXIDE 18 MMOL/L (21-32); CREATININE SERUM 0.79 MG/DL (0.60-1.30); GFR ESTIMATED > 60; GLUCOSE 92 MG/DL (70-105); TOTAL PROTEIN 7.4 GM/DL (6.4-8.2)
[2018-11-25 19:01] LABS: BILIRUBIN,URINE NEGATIVE (NEGATIVE); CLARITY,URINE CLEAR; COLOR,URINE YELLOW; GLUCOSE, URINE (UA) NEGATIVE (NEGATIVE); KETONES,URINE 4+ (NEGATIVE); LEUKOCYTE ESTERASE ,URINE 1+ (NEGATIVE); NITRITE,URINE NEGATIVE (NEGATIVE); PH,URINE 6.5 (5-9); PROTEIN,URINE 1+ (NEGATIVE); UROBILINOGEN,URINE 1 MG/DL (NORMAL)
--- NOTE | 2018-11-25 19:06 | ED GU-Female ---
General Chief Complaint: Abdominal/GI Problems Stated Complaint: LOWER ABD PAIN,NECK PAIN,FEVER Nursing Triage Note: AMB TO ROOM C/O LOW ABD PAIN,FEVER AND HURTNG ALL OVER. ONSET 2AM TODAY. REDNESS TO LOW ABD PAIN PATIENT REPORTS THAT SHE HAS HAD HEATING PAD ON LOWER ABD Nursing Sepsis Screen: Possible Sepsis Risk Source: patient, spouse Exam Limitations: no limitations History of Present Illness Date Seen by Provider: Nov 25, 2018 Time Seen by Provider: 18:35 Initial Comments 28 yo female patient presents with lower abdominal pain, fever, and generalized bodyaches beginning today at 0200. She does report nausea and vomiting. She is unsure of how high her temperature has gotten. No solids since 1200. She did have a few sips of liquids on the way to the ED. Timing/Duration: this morning (0200), getting worse Severity/Quality: aching, cramping, sharp Location: suprapubic Radiation: none Activities at Onset: sleep Prior Genitourinary Problems: none Sexual [place] History: less than 2 months ago, single partner Modifying Factors: Worsens With Movement, Worsens With Palpation, Worsens With Vomiting Allergies and Home Medications Allergies Coded Allergies: No Known Drug Allergies (Unverified , 05/25/17) Home Medications Ondansetron 8 Mg Tab.rapdis, 8 MG PO Q6H PRN for NAUSEA/VOMITING Prescribed by: STACY ADAMS on 11/25/182117 Oseltamivir Phosphate 75 Mg Capsule, 75 MG PO BID Prescribed by: STACY ADAMS on 11/25/182117 Patient Home Medication List Home Medication List Reviewed: Yes Review of Systems Review of Systems Constitutional: chills; No dizziness; fever, malaise; No weakness EENTM: No ear pain, No nose congestion, No throat pain, No throat swelling, No other (denies rhinorrhea and sneezing. ) Respiratory: No cough, No phlegm, No short of breath, No stridor, No wheezing Cardiovascular: No chest pain, No edema, No palpitations, No syncope Gastrointestinal: see HPI, abdominal pain (suprapubic abdominal pain); No constipation, No diarrhea, No hematemesis, No jaundice; loss of appetite; No melena; nausea, vomiting Genitourinary: denies burning, denies discharge, denies dysuria, denies frequency, denies flank pain, denies hematuria; pain (suprapubic abd pain) : No Musculoskeletal: see HPI, other (generalized bodyaches) Skin: no symptoms reported Psychiatric/Neurological: No Symptoms Reported All Other Systemes Reviewed Negative Unless Noted: Yes (Negative excepted noted.) Past Iibzpbn-Qeqnsi-Pnnqza Hx Past Med/Social Hx: Reviewed and Corrections made Patient Social History Alcohol Use: Denies Use Recreational Drug Use: No Smoking Status: Never a Smoker Recent Foreign Travel: No Contact w/Someone Who Travel: No Recent Infectious Disease Expo: No Recent Hopitalizations: No Seasonal Allergies Seasonal Allergies: No Past Medical History Surgeries: Yes (CS 06/23/2011) Respiratory: No Cardiac: No Neurological: No : No Hx : 2 Hx Para: 2 Hx Total # of Abortions (Sp): 0 Reproductive Disorders: No Female Reproductive Disorders: Denies 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.) Sexually Transmitted Disease: No HIV/AIDS: No Genitourinary: No Gastrointestinal: No Musculoskeletal: No Endocrine: No HEENT: No Loss of Vision: Denies Hearing Impairment: Denies Cancer: No Psychosocial: No Integumentary: No Blood Disorders: No Adverse Reaction/Blood Tranf: No Family Medical History Reviewed Nursing Family Hx Diabetes mellitus G8 BROTHER FH: diverticulitis 19 FATHER Thyroid disease G8 BROTHER (Hypothyroidism) No Pertinent Family Hx Physical Exam Vital Signs Vital Signs - First Documented 11/25/18 18:22 Temp 103.3 Pulse 145 Resp 20 B/P (MAP) 100/66 (77) Pulse Ox 99 Capillary Refill : Less Than 3 Seconds Height, Weight, BMI Height: 5'3.00" Weight: 138lbs. 2.0oz. [id number]; 32.6 BMI Method:Stated General Appearance: WD/WN, no apparent distress HEENT: PERRL/EOMI, normal ENT inspection, TMs normal, pharynx normal Neck: non-tender, full range of motion, supple, normal inspection Cardiovascular: normal peripheral pulses, no edema, no gallop, no murmur, tachycardia Respiratory: lungs clear, normal breath sounds, no respiratory distress, no accessory muscle use Gastrointestinal: normal bowel sounds, soft, no organomegaly; No distended; guarding (suprapubic guarding); No rebound; tenderness (suprapubic); No mass Back: normal inspection, no CVA tenderness Extremities: normal inspection, no pedal edema, no calf tenderness, normal capillary refill Neurologic/Psychiatric: alert, normal mood/affect, oriented x 3 Skin: normal color, warm/dry, other (erythema to the lower abdomen (pt reports she has had a hot pack on the lower abdomen)) Lymphatic: no adenopathy Focused Exam Lactate Level 11/25/18 18:33: Lactic Acid Level 0.81 Time of Focused Exam: 19:30 Respiratory: Lungs Clear, Normal Breath Sounds, No Accessory Muscle Use, No Respiratory Distress Cardiovascular: No Edema, No Gallop, No Murmur, Normal Peripheral Pulses, Tachycardia (improved tachycardia from 145 bpm to 120 bpm with the initiation of fluids. ) Capillary Refill: Less Than 3 Seconds Skin: normal color, warm/dry Lactic Acid Level Progress/Results/Core Measures Suspected Sepsis Recent Fever Within 48 Hours: Yes Infection Criteria Present: Suspected New Infection New/Unexplained Altered Menta: No Sepsis Screen: Possible Sepsis Risk SIRS Temperature:103.3 Pulse: 145 Respiratory Rate: 20 Laboratory Tests 11/25/18 18:33: White Blood Count 5.7 Blood Pressure 100 /66 Mean: 77 11/25/18 18:33: Lactic Acid Level 0.81 Laboratory Tests 11/25/18 18:33: Creatinine 0.79, INR Comment 1.2, Platelet Count 198, Total Bilirubin 1.7H Results/Orders Lab Results Laboratory Tests Test 11/25/18 18:33 11/25/18 18:45 Range/Units White Blood Count 5.7 4.3-11.0 10^3/uL Red Blood Count 4.62 4.35-5.85 10^6/uL Hemoglobin 13.5 11.5-16.0 G/DL Hematocrit 40 35-52 % Mean Corpuscular Volume 86 80-99 FL Mean Corpuscular Hemoglobin 29 25-34 PG Mean Corpuscular Hemoglobin Concent 34 32-36 G/DL Red Cell Distribution Width 12.6 10.0-14.5 % Platelet Count 198 130-400 10^3/uL Mean Platelet Volume 9.9 7.4-10.4 FL Neutrophils (%) (Auto) 88 H 42-75 % Lymphocytes (%) (Auto) 9 L 12-44 % Monocytes (%) (Auto) 3 0-12 % Eosinophils (%) (Auto) 0 0-10 % Basophils (%) (Auto) 0 0-10 % Neutrophils # (Auto) 5.0 1.8-7.8 X 10^3 Lymphocytes # (Auto) 0.5 L 1.0-4.0 X 10^3 Monocytes # (Auto) 0.1 0.0-1.0 X 10^3 Eosinophils # (Auto) 0.0 0.0-0.3 10^3/uL Basophils # (Auto) 0.0 0.0-0.1 10^3/uL Neutrophils % (Manual) 85 % Lymphocytes % (Manual) 13 % Monocytes % (Manual) 2 % Prothrombin Time 15.5 H 12.2-14.7 SEC INR Comment 1.2 0.8-1.4 Activated Partial Thromboplast Time 34 24-35 SEC Sodium Level 135 135-145 MMOL/L Potassium Level 3.3 L 3.6-5.0 MMOL/L Chloride Level 104 98-107 MMOL/L Carbon Dioxide Level 18 L 21-32 MMOL/L Anion Gap 13 5-14 MMOL/L Blood Urea Nitrogen 8 7-18 MG/DL Creatinine 0.79 0.60-1.30 MG/DL Estimat Glomerular Filtration Rate > 60 BUN/Creatinine Ratio 10 Glucose Level 92 70-105 MG/DL Lactic Acid Level 0.81 0.50-2.00 MMOL/L Calcium Level 9.0 8.5-10.1 MG/DL Corrected Calcium 8.7 8.5-10.1 MG/DL Total Bilirubin 1.7 H 0.1-1.0 MG/DL Aspartate Amino Transf (AST/SGOT) 20 5-34 U/L Alanine Aminotransferase (ALT/SGPT) 15 0-55 U/L Alkaline Phosphatase 78 40-136 U/L Total Protein 7.4 6.4-8.2 GM/DL Albumin 4.4 3.2-4.5 GM/DL Urine Color YELLOW Urine Clarity CLEAR Urine pH 6.5 5-9 Urine Specific [place] 1.015 L 1.016-1.022 Urine Protein 1+ H NEGATIVE Urine Glucose (UA) NEGATIVE NEGATIVE Urine Ketones 4+ H NEGATIVE Urine Nitrite NEGATIVE NEGATIVE Urine Bilirubin NEGATIVE NEGATIVE Urine Urobilinogen 1 NORMAL MG/DL Urine Leukocyte Esterase 1+ H NEGATIVE Urine RBC (Auto) NEGATIVE NEGATIVE Urine RBC NONE /HPF Urine WBC 0-2 /HPF Urine Squamous Epithelial Cells 2-5 /HPF Urine Crystals NONE /LPF Urine Bacteria FEW H /HPF Urine Casts NONE /LPF Urine Mucus SMALL H /LPF Urine Culture Indicated CULTURE PENDING Urine Test NEGATIVE NEGATIVE Micro Results Microbiology 11/25/18 Influenza Types A,B Antigen (JOHNATHAN) - Final, Complete My Orders Orders - STACY ADAMS Cbc With Automated Diff (11/25/18 18:27) Comprehensive Metabolic Panel (11/25/18 18:27) Blood Culture (11/25/18 18:27) Sputum Culture (11/25/18 18:27) Urinalysis (11/25/18 18:27) Urine Culture (11/25/18 18:27) Protime With Inr (11/25/18 18:27) Partial Thromboplastin Time (11/25/18 18:27) Chest 1 View, Ap/Pa Only (11/25/18 18:27) Acetaminophen Tablet (Tylenol Tablet) (11/25/18 18:30) Saline Lock/Iv-Start (11/25/18 18:27) Saline Lock/Iv-Start (11/25/18 18:27) Vital Signs Adult Sepsis Patie Q15M (11/25/18 18:27) Ondansetron Injection (Zofran Injectio (11/25/18 18:30) Remove Rings In Anticipation O (11/25/18 18:27) Lactic Acid Analyzer (11/25/18 18:27) Influenza A And B Antigens (11/25/18 18:27) Ns Iv 1000 Ml (Sodium Chloride 0.9%) (11/25/18 18:30) Fentanyl Injection (Sublimaze Injection (11/25/18 18:39) Ct Abdomen/Pelvis W (11/25/18 18:39) Iohexol Injection (Omnipaque 350 Mg/Ml 1 (11/25/18 18:45) Contrast Received (Contrast Received) (11/25/18 18:45) Ns (Ivpb) (Sodium Chloride 0.9% Ivpb Bag (11/25/18 18:45) Manual Differential (11/25/18 18:33) Hcg,Qualitative Urine (11/25/18 18:56) Ketorolac Injection (Toradol Injection) (11/25/18 21:10) Ketorolac Injection (Toradol Injection) (11/25/18 21:08) Oseltamivir 75 Mg Capsule (Tamiflu 75 (11/25/18 21:30) Rx-Ondansetron Po (Rx-Zofran Po) (11/25/18 21:16) Medications Given in ED Current Medications Medications Dose Ordered Sig/Cathie Route Start Time Stop Time Status Last Admin Dose Admin Acetaminophen 1,000 mg ONCE PRN PO 11/25/18 18:30 11/25/18 18:54 DC 11/25/18 18:49 1,000 MG Iohexol 100 ml ONCE ONCE IV 11/25/18 18:45 11/25/18 18:46 DC 11/25/18 19:10 100 ML Ondansetron HCl 4 mg PRN PRN IV 11/25/18 18:30 11/25/18 18:54 DC 11/25/18 18:50 4 MG Sodium Chloride 100 ml ONCE ONCE IV 11/25/18 18:45 11/25/18 18:46 DC 11/25/18 19:10 100 ML Sodium Chloride 2,505.54 ml @ 2,505.54 mls/hr ONCE ONCE IV 11/25/18 18:30 11/25/18 19:29 DC 11/25/18 18:53 2,505.54 MLS/HR Vital Signs/I&O 11/25/18 18:22 Temp 103.3 Pulse 145 Resp 20 B/P (MAP) 100/66 (77) Pulse Ox 99 Capillary Refill : Less Than 3 Seconds Blood Pressure Mean: 77 Diagnostic Imaging Diagonstic Imaging: CT Plain Films/CT/US/NM/MRI: abdomen, pelvis Comments CT ABDOMEN/PELVIS W PROCEDURE: CT abdomen and pelvis with contrast. TECHNIQUE: Multiple contiguous axial images were obtained through the abdomen and pelvis after administration of intravenous contrast. INDICATION: Pelvic pain FINDINGS: The lung bases are clear. The liver appears normal. The gallbladder is present. The pancreas is normal. The spleen is not enlarged. The kidneys and adrenals appear normal. The small bowel is unremarkable. There is moderate amount of stool in the colon. There is an IUD in the uterus. Adnexa appear normal. There is no intraperitoneal free air. There is a trace amount of free fluid in the cul -de-sac. The appendix is not definitively seen but there is no inflammatory change where the appendix is anticipated to be. Urinary bladder is unremarkable. IMPRESSION: No acute abnormality is seen in the abdomen or pelvis. Dictated by: Dictated on workstation # [id number] Reviewed: Reviewed by Me (radiology report reviewed by me) Diagonstic Imaging: Xray Plain Films/CT/US/NM/MRI: chest Comments No acute cardiopulmonary findings noted. Reviewed: Reviewed by Me Departure Communication (Admissions) Patient seen and evaluated. Initial labs drawn, flu swab obtained, cxr, and CT abd/pelvis obtained. patient was given a bolus of IVF at 30cc/kg, tylenol 100mg po, zofran 4mg, and fentanyl 50mcg. all laboratory and diagnostic findings discussed with the patient. Patient was given Toradol 30 mg IV for mild suprapubic abdominal pain. Patient had complete resolution of symptoms following medications and fluids. Plan for dsch to home with f/u in the next 1- 2 days with her pcp for recheck. Patient to return immediately to the emergency department for worsened symptoms or any other concerns. Impression Primary Impression: Influenza-like illness Additional Impression: Dehydration Disposition: HOME, SELF-CARE Condition: Improved Departure-Patient Inst. Decision time for Depature: 20:45 Referrals: NO,LOCAL PHYSICIAN (PCP/Family) Primary Care Physician Patient Instructions: Dehydration, Adult (DC), Flu, Adult (DC), Nausea and Vomiting, Adult (DC) Add. Discharge Instructions: All discharge instructions reviewed with patient and/or family. Voiced understanding. Medications as instructed. Tylenol extra strength over-the- counter 1000 mg by mouth every 6 hours as needed for pain or fever. Ibuprofen 800 mg by mouth every 8 hours as needed for pain or fever. Push fluids. Clear liquid diet until symptoms improve, then increase diet slowly. Rest. Follow- up with your family practitioner for recheck in the next 1-2 days, call for appointment time tomorrow morning. Return to the emergency department for worsened pain, fever, vomiting, vomiting blood, decreased urination, rectal bleeding, abdominal swelling, or any other concerns. Scripts Oseltamivir Phosphate (Oseltamivir Phosphate) 75 Mg Capsule 75 MG PO BID, #10 CAP 0 Refills Prov: STACY ADAMS 11/25/18 Ondansetron (Ondansetron Odt) 8 Mg Tab.rapdis 8 MG PO Q6H PRN for NAUSEA/VOMITING, #10 TAB 0 Refills Prov: STACY ADAMS 11/25/18 Work/School Note: [employer], Work Release Form Date Seen in the Emergency Department: Nov 25, 2018 Return to Work: Nov 27, 2018 Restrictions: Return-No Fever (24hrs), Return-No Vomiting(24hrs) STACY ADAMS Nov 25, 2018 19:06
[2018-11-25 19:12] LABS: BACTERIA,URINE FEW /HPF; WBC,URINE 0-2 /HPF
[2018-11-25 19:29] LABS: NEUTROPHILS % (MANUAL) 85 %
[2018-11-25 19:30] LABS: LYMPHOCYTES % (MANUAL) 13 %; MONOCYTES % (MANUAL) 2 %
--- NOTE | 2018-11-25 19:39 | Diagnostic Imaging Report ---
PROCEDURE: CT abdomen and pelvis with contrast. TECHNIQUE: Multiple contiguous axial images were obtained through the abdomen and pelvis after administration of intravenous contrast. INDICATION: Pelvic pain FINDINGS: The lung bases are clear. The liver appears normal. The gallbladder is present. The pancreas is normal. The spleen is not enlarged. The kidneys and adrenals appear normal. The small bowel is unremarkable. There is moderate amount of stool in the colon. There is an IUD in the uterus. Adnexa appear normal. There is no intraperitoneal free air. There is a trace amount of free fluid in the cul-de-sac. The appendix is not definitively seen but there is no inflammatory change where the appendix is anticipated to be. Urinary bladder is unremarkable. IMPRESSION: No acute abnormality is seen in the abdomen or pelvis. Dictated by: Dictated on workstation # [id number]
[2018-11-25] MEDS ORDERED: KETOROLAC 30 MG/ML VIAL ONE (21:08)
[2018-11-25] MEDS ORDERED: KETOROLAC 30 MG/ML VIAL IVP STA (21:10)
[2018-11-25] MEDS ORDERED: RX-ONDANSETRON 4 MG ODT (ZOFRAN) PPK #4 PO STA (21:16)
[2018-11-25] MEDS ORDERED: ONDA8TAB13 PO (21:18)
[2018-11-25] MEDS ORDERED: OSEL75CA15 PO (21:18)
[2018-11-25] MEDS ORDERED: OSELTAMIVIR 75 MG (TAMIFLU) CAPSULE PO ONE (21:30)
[2018-11-25 21:53] VITALS: BP 95/57
--- NOTE | 2018-11-25 21:53 | NUR ---
TERI ADAMS APRN REVIEWED DISCHARGE INSTRUCTIONS WITH PATIENT. NO QUESTIONS OR CONCERNS VOICED.
--- NOTE | 2018-11-26 08:10 | Diagnostic Imaging Report ---
INDICATION: Irregular breathing and fever. COMPARISON: No comparison available. FINDINGS: Lungs demonstrate no focal pulmonary infiltrate or consolidation. There is no effusion. There is no pneumothorax. Heart size and mediastinal contours appear appropriate. Pulmonary vascularity appears normal. There is a mild mid thoracic dextroscoliosis. IMPRESSION: 1. No radiographic evidence of an acute cardiopulmonary process. Dictated by: Dictated on workstation # [id number]
== END 2018-11-25 21:53 | disposition home or self-care (01) ==
LOC: EDUNIT# 18:18 → ER 18:20
DX: J10.1 Influenza due to other identified influenza virus with other respiratory manifestations (principal); E86.0 Dehydration; Z97.5 Presence of (intrauterine) contraceptive device
CPT/HCPCS: 36415; 71045; 74177; 80053; 81000; 83605; 84703; 85007; 85027; 85610; 85730; 87040; 87088; 87804

== ENCOUNTER 2022-02-18 20:24 | Emergency (ER) | payer BC ==
[~2022-02-18] VITALS: Ht 160 cm; Wt 63.4 kg
[~2022-02-18 20:24] MED LIST changes: +ONDA8TAB13 PO; +OSEL75CA15 PO; -OXYC-465 PO; +OXYC-556 PO
--- NOTE | 2022-02-18 20:40 | ED Back Pain ---
General Stated Complaint: LOWER BACK PAIN Source of Information: Patient Exam Limitations: No Limitations History of Present Illness Date Seen by Provider: Feb 18, 2022 Time Seen by Provider: 20:38 Initial Comments Patient is a 31-year-old female presents ED with low back pain and buttock pain. She states around 5:00 this evening she was rollerskating when she fell backwards landing on her lower back and buttock. Patient had immediate pain. Pain is worse when she sits down and relieved when she stands up. She took Tylenol about 1 hour before arrival. She denies of any bowel or urine incontinence, saddle paresthesia, lower extremity weakness or sensory changes, swelling or bruising. Denies hit her head or loss of consciousness. Moving all extremities without difficulties. Allergies and Home Medications Allergies Coded Allergies: No Known Drug Allergies (Unverified , 05/25/17) Patient Home Medication List Home Medication List Reviewed: Yes Hydrocodone/Acetaminophen (Hydrocodone-Acetamin 5-325 mg) 5 Mg-325 Mg Tablet, 1 TAB PO Q4H PRN for PAIN-MODERATE (5-7) Prescribed by: MINNIE ROBLES on 02/18/222125 Ondansetron (Ondansetron Odt) 8 Mg Tab.rapdis, 8 MG PO Q6H PRN for NAUSEA/VOMITING Prescribed by: STACY ADAMS on 11/25/182117 Oseltamivir Phosphate (Oseltamivir Phosphate) 75 Mg Capsule, 75 MG PO BID Prescribed by: STACY ADAMS on 11/25/182117 Review of Systems Constitutional: No chills, No diaphoresis, No fever, No weakness EENTM: No blurred vision, No double vision Respiratory: No cough, No orthopnea, No short of breath, No wheezing Cardiovascular: No chest pain, No edema Gastrointestinal: No abdominal pain, No diarrhea, No vomiting Musculoskeletal: back pain, joint pain; No joint swelling; muscle pain; No neck pain, No other Skin: No change in color, No change in hair/nails All Other Systems Reviewed Negative Unless Noted: Yes Past Altjhua-Ukrfyw-Xtfsgg Hx Seasonal Allergies Seasonal Allergies: No Past Medical History Surgeries: Yes ( 06/23/2011) Respiratory: No Cardiac: No Neurological: No Reproductive Disorders: No Female Reproductive Disorders: Denies 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 Sexually Transmitted Disease: No HIV/AIDS: No Genitourinary: No Gastrointestinal: No Musculoskeletal: No Endocrine: No HEENT: No Loss of Vision: Denies Hearing Impairment: Denies Cancer: No Psychosocial: No Integumentary: No Blood Disorders: No Adverse Reaction/Blood Tranf: No Family Medical History Diabetes mellitus G8 BROTHER FH: diverticulitis 19 FATHER Thyroid disease G8 BROTHER (Hypothyroidism) No Pertinent Family Hx Physical Exam Vital Signs Vital Signs - First Documented 02/18/22 02/18/22 20:41 21:33 Pulse 104 Resp 16 B/P (MAP) 115/84 (94) Pulse Ox 100 O2 Delivery Room Air Capillary Refill : Height, Weight, BMI Height: 5'3.00" Weight: 138lbs. 2.0oz. 62.180876ib; 32.6 BMI Method:Stated General Appearance: No Apparent Distress, WD/WN HEENT: PERRL/EOMI, TMs Normal, Normal ENT Inspection, Pharynx Normal Neck: Full Range of Motion, Normal Inspection, Non Tender, Supple Cardiovascular: Regular Rate, Rhythm, No Edema, No Gallop, No JVD, No Murmur Respiratory: Chest Non Tender, Lungs Clear, Normal Breath Sounds, No Accessory Muscle Use, No Respiratory Distress Back: Other (Lumbar midline tenderness, sacrum tenderness. No swelling erythema or ecchymosis. Normal active range of motion.) Extremity: Normal Capillary Refill, Normal Inspection, Normal Range of Motion, Non Tender, No Calf Tenderness Neurologic/Psychiatric: Alert, Oriented x3, No Motor/Sensory Deficits, Normal Mood/Affect Skin: Normal Color, Warm/Dry Progress/Results/Core Measures Results/Orders My Orders Orders - LAURO HERREAR Hydrocodone/Apap 5/325 Tablet (Lortab 5 (02/18/22 20:45) Ct Lumbar Spine Wo (02/18/22 20:35) Medications Given in ED Vital Signs/I&O 02/18/22 02/18/22 20:41 21:33 Pulse 104 77 Resp 16 18 B/P (MAP) 115/84 (94) Pulse Ox 100 99 O2 Delivery Room Air Departure Communication (PCP) Patient with a mechanical fall while roller skating. Fell on her lower back. No focal neural deficits. CT scan Acute mildly displaced fracture of the S5 sacral segment. Patient was discussed with orthopedic Dr. Merida who felt like this is more conservative treatment at this time. Will discharge with pain medication. Recommend ibuprofen. Discussed soft padding while sitting. Provided work note. Provided outpatient orthopedic follow up. Impression Primary Impression: Sacral fracture Disposition: HOME, SELF-CARE Condition: Stable Departure-Patient Inst. Decision time for Depature: 21:16 Referrals: NO,LOCAL PHYSICIAN (PCP) Primary Care Physician CHOCO MADSEN APRN (Family) Primary Care Physician Patient Instructions: Low Back Pain ED Scripts Hydrocodone/Acetaminophen (Hydrocodone-Acetamin 5-325 mg) 5 Mg-325 Mg Tablet 1 TAB PO Q4H PRN for PAIN-MODERATE (5-7), #10 TAB Prov: LAURO HERRERA 02/18/22 Work/School Note: Work Release Form Date Seen in the Emergency Department: Feb 18, 2022 Return to Work: Feb 20, 2022 LAURO HERRERA Feb 18, 2022 20:40
[2022-02-18 20:41] VITALS: BP 115/84
[2022-02-18] MEDS ORDERED: HYDROcodone/APAP 5 MG/325 MG (LORTAB) TAB PO ONE (20:45)
--- NOTE | 2022-02-18 21:07 | Diagnostic Imaging Report ---
Procedure: CT lumbar spine without contrast. Technique: Multiple contiguous axial images were obtained through the lumbar spine without the use of intravenous contrast. Sagittal and coronal reformations were then performed. Auto Exposure Controls were utilized during the CT exam to meet ALARA standards for radiation dose reduction. Date: February 18, 2022. Indication: 31-year-old female, low back pain[facility] Comparison: CT abdomen pelvis November 25, 2018. Findings: There is an acute mildly displaced fracture involving the S5 sacral segment, best seen on sagittal image 37 and adjacent sequential images. There is no additional identified sacral fracture. There is no identified acute fracture of the lumbar spine. The alignment of the lumbar spine is unremarkable. The lumbar disc heights are well preserved. The sacroiliac joints are normally aligned. Impression: 1. Acute mildly displaced fracture of the S5 sacral segment. 2. No acute abnormality of the lumbar spine. Dictated by: Dictated on workstation # [id number]
[2022-02-18] MEDS ORDERED: ACHD5005 PO (21:25)
== END 2022-02-18 21:32 | disposition home or self-care (01) ==
LOC: EDUNIT# 20:24 → ER 20:25
DX: S32.10XA Unspecified fracture of sacrum, initial encounter for closed fracture (principal); V00.111A Fall from in-line roller-skates, initial encounter; Y93.51 Activity, roller skating (inline) and skateboarding
CPT/HCPCS: 72131